=== PATIENT | male | born 1990 | race Caucasian/White ===

== ENCOUNTER 2016-10-13 07:07 | Emergency (ER) | payer OTHER ==
[~2016-10-13] VITALS: Ht 167.6 cm; Wt 89.6 kg
[2016-10-13 10:12] VITALS: BP 133/84
== END 2016-10-13 12:00 | disposition home or self-care (01) ==
LOC: ER 07:07
DX: H66.93 Otitis media, unspecified, bilateral (principal); F41.9 Anxiety disorder, unspecified; R42 Dizziness and giddiness
CPT/HCPCS: 70450; 81002; 93005

== ENCOUNTER 2019-10-16 07:42 | Emergency (ER) | payer OTHER ==
[~2019-10-16] VITALS: Ht 167.6 cm; Wt 90.7 kg
[2019-10-16 08:29] LABS: Basophils # (auto) 0 uL; Basophils % (auto) 0.5 % (0.0-2.0); Eosinophils # (auto) 0.2 uL; Eosinophils % (auto) 2.5 % (0.0-7.0); Hematocrit 42.8 % (41.0-53.0); Lymphocytes % (auto) 20.7 % (10.0-50.0); Mean Corpuscular Hemoglobin 30.8 pg (28.0-32.0); Mean Corpuscular Hgb Conc. 35.1 g/dL (32.0-36.0); Mean Corpuscular Volume 87.9 fL (80.0-100.0); Monocytes # (auto) 0.6 uL; Monocytes % (auto) 6.5 % (0.0-12.0); Neutrophils # (auto) 6.8 uL; Neutrophils % (auto) 69.8 % (37.0-80.0); Platelet Count (auto) 244 10^3/uL (140-450); Red Blood Cells 4.87 10^6/uL (4.5-5.90); Red Cell Distribution Width 12.6 % (11.8-14.3); White Blood Cell 9.7 10^3/uL (4.4-10.8)
[2019-10-16 08:45] LABS: Albumin 4.3 g/dL (3.4-5.0); Anion Gap 8 (5-15); Blood Urea Nitrogen 12 mg/dL (7-18); Calcium 9.1 mg/dL (8.5-10.1); Carbon Dioxide 27 mmol/L (21-32); Chloride 105 mmol/L (98-107); Glucose 86 mg/dL (74-106); Potassium 4.1 mmol/L (3.5-5.1); Sodium 140 mmol/L (136-145)
[2019-10-16 08:51] LABS: Alanine Aminotransferase 28 U/L (16-61); Alkaline Phosphatase 40 U/L (45-117); Aspartate Aminotransferase 13 U/L (15-37); BUN/Creatinine Ratio 12.9; Bilirubin, Total 0.5 mg/dL (0.2-1.0); GFR African American 123 mL/min; GFR Non-African American 101 mL/min; Total Protein 8.2 g/dL (6.4-8.2)
[2019-10-16 09:50] VITALS: BP 115/65
== END 2019-10-16 09:57 | disposition home or self-care (01) ==
LOC: ER 07:42
DX: F41.9 Anxiety disorder, unspecified (principal); J40 Bronchitis, not specified as acute or chronic; R42 Dizziness and giddiness; R51 Headache; F17.210 Nicotine dependence, cigarettes, uncomplicated
CPT/HCPCS: 36415; 71046; 80053; 83735; 84484; 85025; 93005

== ENCOUNTER 2021-08-28 13:22 | Emergency (ER) | payer OTHER ==
[~2021-08-28] VITALS: Ht 167.6 cm; Wt 93.0 kg
[2021-08-28 13:23] VITALS: BP 138/72
== END 2021-08-28 17:12 | disposition left against medical advice (07) ==
LOC: ER 13:22
DX: K08.89 Other specified disorders of teeth and supporting structures (principal); Z53.21 Procedure and treatment not carried out due to patient leaving prior to being seen by health care provider